=== PATIENT | female | born 1985 | race Caucasian/White ===

== ENCOUNTER 2016-11-01 12:53 | Observation (INO) | payer BC, MEDICAID ==
[2016-11-01 15:39] LABS: Hematocrit 39 % (35-47); Hemoglobin 13.1 g/dl (12.0-16.0); Mean Corpuscular HGB Conc 34 g/dl (31-36); Mean Corpuscular Hemoglobin 30 pg (27-31); Mean Corpuscular Volume 89 fL (80-97); Mean Platelet Volume 9 um3 (7.4-10.4); Red Cell Distribution Width 12 % (10.5-15)
--- NOTE | 2016-11-01 15:40 | RAD ---
HISTORY: Right flank pain COMPARISONS: None TECHNIQUE: Multiple transverse and longitudinal ultrasound images were obtained of the kidneys using grayscale and color Doppler imaging. FINDINGS: RIGHT KIDNEY: The right kidney is normal in shape, size, contour, and echogenicity. There are several echogenic shadowing foci of the right kidney, measuring up to 0.8 cm. There is no hydronephrosis. The right kidney measures 12.2 x 4 x 4.1 cm. LEFT KIDNEY: The left kidney is normal in shape, size, contour, and echogenicity. There is an echogenic shadowing focus of the left kidney along the lower pole measuring up to 0.5 cm. There is no appreciable hydronephrosis. The left kidney measures 12.3 x 5.9 x 4.9 cm. BLADDER: No images are submitted of the bladder. AORTA AND IVC: No images are submitted of the vasculature. RETROPERITONEUM: Unremarkable. OTHER: None. IMPRESSION: BILATERAL NEPHROLITHIASIS WITHOUT APPRECIABLE HYDRONEPHROSIS
[2016-11-01 16:07] LABS: Albumin 4.2 g/dL (3.2-5.2); BUN/Creatinine Ratio 20.8 (8-20); C Reactive Protein 7.79 mg/L (< 5.00); Calcium 9.1 mg/dL (8.6-10.3); EGFR African American 191.6 (>60); EGFR Non-African American 148.9 (>60); Potassium 3.7 mmol/L (3.5-5.0); Total Bilirubin 1.2 mg/dL (0.2-1.0); Total Protein 7.2 g/dL (6.4-8.9)
[2016-11-01] MEDS ORDERED: Ondansetron INJ* 2 MG/ML VIAL IV ONE (16:40)
[2016-11-01] MEDS ORDERED: Morphine INJ* 2 MG/ML 1 ML SYRINGE IV ONE ×2 (16:40)
[2016-11-01] MEDS ORDERED: Ondansetron INJ* 2 MG/ML VIAL IV PRN (16:53)
[2016-11-01 16:57] LABS: Urine Bacteria Absent (Absent); Urine Bilirubin Negative (Negative); Urine Glucose Negative (Negative); Urine Nitrite Negative (Negative)
[2016-11-01] MEDS: NS 0.9% 1000 ML* 2,000 ML IV ONE (17:20)
[2016-11-01] MEDS ORDERED: Morphine INJ* 2 MG/ML 1 ML SYRINGE IV PRN (17:32)
--- NOTE | 2016-11-01 20:15 | ED ---
Sara Anne Edward, scribed for Viraj Martin MD on 11/01/16 at 1439 . Back Pain - HPI Summary HPI Summary: 31 y/o female presents to the ED c/o sharp L flank pain starting at 7:00, which woke the patient up at night. The pain was rated at a 8/10 @ triage. The pain subsided but reappeared and now radiates to the front and the side. During the patient's first the patient had a kidney infection. Associated sx: N/ V. The patient is 9 weeks . PMHx kidney stones. G/P/A - . - History of Current Complaint Chief Complaint: EDFlankPain Stated Complaint: LT SIDE FLANK PAIN/9WKS PREG Time Seen by Provider: 11/01/16 14:29 Hx Obtained From: Patient Onset/Duration: Sudden Onset, Lasting Hours, Still Present Onset/Duration: Started Hours Ago - 07:00 this morning Severity Initially: Severe Severity Currently: Severe Pain Intensity: 8 Pain Scale Used: 0-10 Numeric Character: Sharp Associated Signs And Symptoms: Positive: Flank Pain, Other - N/V - Allergies/Home Medications Allergies/Adverse Reactions: Allergies Allergy/AdvReac Type Severity Reaction Status Date / Time No Known Allergies Allergy Verified 03/14/16 07:16 Home Medications: Home Medications Vitamin [Calna] 1 tab PO DAILY 11/01/16 [History Confirmed 11/01/16] PMH/Surg Hx/FS Hx/Imm Hx Previously Healthy: No History: Reports: Hx Kidney Infection - HX OF Sensory History: Denies: Hx Contacts or Glasses, Hx Hearing Aid Opthamlomology History: Denies: Hx Contacts or Glasses Neurological History: Reports: Hx Migraine - DURING - Surgical History Surgery Procedure, Year, and Place: APPENDECTOMY. D&E Hx Anesthesia Reactions: Yes - PATIENT GETS NAUSEA WHEN WAKE UP FROM ANESTHESIA Infectious Disease History: Denies: Traveled Outside the [place] in Last 30 Days - Family History Known Family History: Positive: Cardiac Disease - Maternal grandmother, Hypertension - Father and mother, Diabetes - Father, Other - Father - hyperlipidemia - Social History Alcohol Use: Occasionally Substance Use Type: Reports: None Smoking Status (MU): Never Smoked Tobacco Review of Systems Constitutional: Negative Eyes: Negative ENT: Negative Cardiovascular: Negative Respiratory: Negative Positive: Vomiting, Nausea Positive: flank pain Musculoskeletal: Negative Skin: Negative Neurological: Negative Psychological: Normal All Other Systems Reviewed And Are Negative: Yes Physical Exam - Summary Physical Exam Summary: VITAL SIGNS:~Reviewed. GENERAL:~Patient is a well-developed and nourished female who is lying comfortable in the stretcher.~ Patient is not in any acute respiratory distress. HEAD AND FACE:~Normocephalic and atraumatic. EYES:~PERRLA, EOMI x 2, No injected conjunctiva. EARS:~Hearing grossly intact. Ear canals and tympanic membranes are WNL. MOUTH:~Oropharynx within normal limits. NECK:~Supple, trachea is midline, no adenopathy, no JVD. CHEST:~Symmetric, no tenderness at palpation LUNGS:~Clear to auscultation bilaterally. No wheezing or crackles. CVS:~RRR, S1 and S2 present, no murmurs or gallops appreciated. ABDOMEN:~Soft, L CVA and L flank tenderness. No signs of distention. Positive bowel sounds. No rebound no guarding, and no masses palpated. No abdominal bruit or pulsations. EXTREMITIES:~FROM in all major joints, no edema, no cyanosis or clubbing. NEURO:~Alert and oriented x 3. No acute neurological deficits. Speech is normal. SKIN:~Dry and warm Triage Information Reviewed: Yes Vital Signs On Initial Exam: Initial Vitals Temp Pulse Resp BP Pulse Ox 98.5 F 64 18 98/52 99 11/01/16 12:58 11/01/16 12:58 11/01/16 12:58 11/01/16 12:58 11/01/16 12:58 Vital Signs Reviewed: Yes Diagnostics - Vital Signs Vital Signs Temp Pulse Resp BP Pulse Ox 11/01/16 12:58 98.5 F 64 18 98/52 99 - Laboratory Result Diagrams: 11/01/16 15:30 11/01/16 15:30 Lab Statement: Any lab studies that have been ordered have been reviewed, and results considered in the medical decision making process. - Ultrasound No standard instances Ultrasound Interpretation: Positive (See Comments) - RENAL US - BILATERAL NEPHROLITHIASIS WITHOUT APPRECIABLE HYDRONEPHROSIS Ultrasound Interpretation Completed By: Radiologist Back Pain Course/Dx - Course Assessment/Plan: 31 y/o female presents to the ED c/o sharp L flank pain starting at 7:00, which woke the patient up at night. The pain was rated at a 8/ 10 @ triage. The pain subsided but reappeared and now radiates to the front and the side. During the patient's first the patient had a kidney infection. Associated sx: N/V. The patient is 9 weeks . PMHx kidney stones. G/P/A - . Test results show WBC 15 without bands. Creatinine .48, glucose 104, CRP 7.7, UA 2 + ketones 1+ blood and contaminated. Therefore we will send for a urine culture. The patient c/o L flank pain radiating to the LLQ. Patient has a history of kidney stones. Since the patient is we cant do a ABD /Pel CT. RENAL US SHOWED BILATERAL NEPHROLITHIASIS WITHOUT APPRECIABLE HYDRONEPHROSIS. Therefore I discussed the findings with Dr. Wilcox who assessed the pt and agreed admission for observation. I also spoke with Dr. Ortiz who accepted the patient for admission with consultation with Dr. Wilcox. The pt became more tender in the L flank with slight nausea so the patient was given Zofran, morphine for pain and more iv fluids. The patient is hemodynamically stable and A&Ox3. - Diagnoses Provider Diagnoses: Flank pain, ruled out ureteral stones - Provider Notifications Discussed Care Of Patient With: Lyubov Ortiz Time Discussed With Above Provider: 16:40 Instructed by Provider To: Admit As Inpatient Discharge - Discharge Plan Condition: Stable Disposition: ADMITTED TO [facility] Referrals: No Primary Care Phys,NOPCP [Primary Care Provider] - The documentation as recorded by the Sara lacey Edward accurately reflects the service I personally performed and the decisions made by , Viraj Martin MD.
[2016-11-01] MEDS ORDERED: Acetaminophen TAB* 325 MG PO PRN (22:48)
[2016-11-01] MEDS ORDERED: Acetaminophen TAB* 325 MG ONE ×2 (22:57)
[2016-11-02] MEDS: NS 0.9% 1000 ML* 1,000 ML IV SCH ×2 (01:55→09:28)
--- NOTE | 2016-11-02 04:05 | HP ---
HISTORY AND PHYSICAL:* DATE OF ADMISSION: 11/01/16 ADDENDUM: To H and P dictated originally by Maryellen Franco. Mrs. Gallegos is a 31-year-old female who is 9 weeks , who presents complaining of flank pain. The ultrasound of her kidneys showed bilateral nephrolithiasis. Dr. Wilcox saw the patient in Gynecology consultation and recommended medicine admission for possibility of nephrolithiasis and renal colic. The patient is going to be admitted to the hospital with diagnosis of left flank pain. She is going to be placed on intravenous fluids, morphine on p.r.n. basis. A repeat renal ultrasound is going to be obtained in the morning. For further details of patient's presentation and plan, please see history and physical dictated by Maryellen Franco on 11/01/16, with which I agree. [id number]/CPS #: [id number] MTDD
--- NOTE | 2016-11-02 05:11 | HP ---
CC: Dr. Nabil Wilcox * HISTORY AND PHYSICAL: DATE OF ADMISSION: 11/01/16 PRIMARY CARE PROVIDER: None. AREA COORDINATOR: Dr. Nabil Wilcox. ATTENDING PHYSICIAN: Lyubov Ortiz MD* (dictated by Ana María Norris NP). CHIEF COMPLAINT: Left flank pain that radiates to abdomen. HISTORY OF PRESENT ILLNESS: Ms. Gallgeos is a 31-year-old female with past medical history significant for pyelonephritis and kidney stones, who is 9 weeks , presented to the emergency room with complaints of sudden onset of left-sided flank pain that radiates to her abdomen with associated nausea and vomiting. The patient also reports that on Friday she had significant vaginal bleeding and again had vaginal spotting yesterday. She reports seeing Dr. Wilcox as an outpatient. She denies any fevers, chest pain, shortness of breath, or urinary symptoms such as dysuria, changes in urgency or frequency. She reports intermittent chills. Due to the patient's flank pain, she presented to the emergency room for further evaluation of her symptoms. While in the emergency room, the patient had an ultrasound showing bilateral nephrolysis without appreciable hydronephrosis. She had urinalysis significant for 1+ blood, leukocyte esterase positive, bacteria absent, wbc's 1+, rbc's 3+. The patient had other labs that were unremarkable with the exception of an elevated white count of 15. The patient was seen in consultation by Dr. Wilcox in the emergency room, who felt that she should be admitted for IV fluids, pain medications, and antiemetics. The Hospitalists were asked to evaluate the patient for admission. PAST MEDICAL HISTORY: 1. Kidney stones. 2. Pyelonephritis. PAST SURGICAL HISTORY: 1. Status post D and E in 2012 and 2015. 2. Status post section in 2014. 3. Status post appendectomy in 1998. HOME MEDICATIONS: Include vitamin 1 tablet oral daily. ALLERGIES: No known drug allergies. FAMILY HISTORY: The patient has a maternal grandmother with a history of coronary artery disease. The patient's father has borderline diabetes mellitus , and the patient's maternal family has diabetes mellitus. The patient's maternal family also has a history of colon cancer. SOCIAL HISTORY: The patient denies tobacco, alcohol or recreational drug use. The patient's , Claude Lewis, will be her surrogate decision maker in the event that she is unable to make decisions for herself. REVIEW OF SYSTEMS: I performed a 14-point review of systems. All the pertinent positive and negatives are mentioned in the history of present illness. The remaining review of systems are negative. PHYSICAL EXAMINATION GENERAL APPEARANCE: The patient is alert, pleasant, appears to be in no acute distress. VITAL SIGNS: Temperature 98.5, heart rate 64, respiratory rate 18, O2 saturation 99% on room air, blood pressure 98/52. HEENT: Normocephalic, atraumatic. Pupils are equal and reactive to light. Extraocular movements are intact. RESPIRATORY: There is no accessory muscle use. Lungs are clear to auscultation bilaterally. CARDIOVASCULAR: Regular rate and rhythm. S1 and S2 present. There are no murmurs, rubs, or gallops heard. ABDOMEN: Soft, nontender, nondistended. There are bowel sounds present x4. EXTREMITIES: There is no lower extremity edema. DP and PT pulses are 2+ and symmetric. MUSCULOSKELETAL: There is no clubbing or cyanosis noted. The patient exhibits good strength in all extremities. NEUROLOGICAL: The patient is alert and oriented x4. Cranial nerves II through XII are grossly intact. PSYCHOLOGICAL: The patient is calm and cooperative. SKIN: There are no rashes or abnormalities. DIAGNOSTIC STUDIES/LABORATORY DATA: Sodium 133, potassium 3.7, chloride 103, CO2 21, BUN 10, creatinine 0.48, glucose 104. White blood cell count 15.0, hemoglobin 13.1, hematocrit 39, platelet count 227. Urinalysis significant for 1+ blood, 1+ wbc's, 3+ rbc's, squamous epithelial cells present, bacteria absent. Renal ultrasound from today. Radiologist impression: Bilateral nephrolysis without appreciable hydronephrosis. IMPRESSION: Ms. Gallegos is a 31-year-old female with past medical history significant for pyelonephritis and kidney stones, who presents to the emergency room with complaints of left-sided flank pain. She will be admitted as observation for left-sided flank pain. ASSESSMENT AND PLAN: 1. Left-sided flank pain. Suspect this could represent nephrolithiasis and renal colic. No kidney stones were noted in the ureters on ultrasound. Due to the patient's , she is unable to have a CT scan, but the ultrasound did show bilateral nephrolithiasis without appreciable hydronephrosis. The patient will receive IV hydration, pain medication, antiemetics as needed. We will strain her urine. I suspect she will pass this stone spontaneously. 2. [address] Wilcox will consult on the patient and check quantitative HCG. The patient will be continued on her vitamin. 3. Fluids, electrolytes, and nutrition. Regular diet. 4. Code status: Full code. 5. DVT prophylaxis. The patient is at low risk and will be encouraged to ambulate. 6. Disposition: Observation. TIME SPENT: Time for this admission was approximately 45 minutes, greater than half of that was spent with the patient and family discussing medications, past medical history, and events leading to her arrival today and performing the physical examination. The case has been reviewed with the patient attending, Dr. Ortiz, who agrees with the plan of care. Reviewed by ANA MARÍA NORRIS, FIELD ADMINISTRATOR-C 11/05/16 1718 DATE OF ADMISSION: 11/01/16 ADDENDUM: To H and P dictated originally by Ana María Norris. Mrs. Gallegos is a 31-year-old female who is 9 weeks , who presents complaining of flank pain. The ultrasound of her kidneys showed bilateral nephrolithiasis. Dr. Wilcox saw the patient in Gynecology consultation and recommended medicine admission for possibility of nephrolithiasis and renal colic. The patient is going to be admitted to the hospital with diagnosis of left flank pain. She is going to be placed on intravenous fluids, morphine on p.r.n. basis. A repeat renal ultrasound is going to be obtained in the morning. For further details of patient's presentation and plan, please see history and physical dictated by Ana María Norris on 11/01/16, with which I agree. LYUBOV ORTIZ MD [id number]/CPS #: [id number]/CPS #: [id number] EDITH
[2016-11-02 05:27] LABS: Hematocrit 33 % (35-47); Hemoglobin 10.9 g/dl (12.0-16.0); Mean Corpuscular HGB Conc 33 g/dl (31-36); Mean Corpuscular Hemoglobin 30 pg (27-31); Mean Corpuscular Volume 90 fL (80-97); Mean Platelet Volume 9 um3 (7.4-10.4); Red Blood Count 3.66 10^6/ul (4.0-5.4); Red Cell Distribution Width 12 % (10.5-15); White Blood Count 9.5 10^3/ul (3.5-10.8)
[2016-11-02 05:42] LABS: BUN/Creatinine Ratio 14.3 (8-20); EGFR African American 187.1 (>60); EGFR Non-African American 145.4 (>60); Potassium 4.1 mmol/L (3.5-5.0)
--- NOTE | 2016-11-02 06:01 | CONS ---
CONSULTATION REPORT: DATE OF CONSULT: 11/01/16 REASON FOR CONSULT: Ms. Gallegos is a 31-year-old who is currently with an intrauterine at 9+ weeks estimated gestational age and due date of 05/17/17. The patient's thus far has been complicated by a history of a molar in March 2016 and also by an urinary tract infection, for which she was treated on 10/11/16. She presented to the emergency room today with complaint of back pain, especially in her lower costal region. After she was evaluated in the emergency room, she was diagnosed with bilateral renal stones. The patient's past medical history is significant for history of renal lithiasis in the past and pyelonephritis during a past . PAST MEDICAL HISTORY: She has had a missed , molar , appendicitis, renal lithiasis, and pyelonephritis. PAST SURGICAL HISTORY: In 2015, she had a dilation and evacuation of a molar . In 2012, she had a section for a breech presentation. In 2012, she also had a dilation evacuation for a missed followed by a D and C due to an incomplete dilation and evacuation of that same missed . In 1998, she had an appendectomy. MEDICATIONS: Currently takes no medications. ALLERGIES: No known drug allergies. SOCIAL HISTORY: She is . She denies any cigarettes, alcohol or drug use. FAMILY HISTORY: Noncontributory. The patient's care up to this date, despite the complication mentioned in the history of present illness, has been within normal limits. PHYSICAL EXAMINATION: On evaluation in the emergency room, the patient was sitting in the emergency room bed. She appeared uncomfortable and in distress with pain. Her vital signs were stable. Her temperature was 97.9, pulse in the 80s, respiratory rate of 60 with a blood pressure of 107/67. Lungs- clear to auscultation bilaterally. CV- regular rate and rhythm. Positive and exquisite left CVA tenderness and suprapubic tenderness. Abdomen, soft, nontender, with normal active bowel sounds and no rebound. heart tones noted by doppler. Pelvic exam deferred. DIAGNOSTIC STUDIES/LAB DATA: She had a renal ultrasound which showed bilateral renal stones. No hydronephrosis bilaterally. Urinalysis was consistent with blood, ketones, and no bacteria. She had a comprehensive metabolic panel which is within normal limit, and a complete blood cell count which showed an elevated white blood cell count of 15, hemoglobin and hematocrit of 13.1/39 and platelets of 227 with no left shift. IMPRESSION: This 31-year-old with intrauterine at 9 weeks with bilateral renal stones with pain secondary to renal lithiasis, who is being admitted for IV hydration and pain control. I recommended she has daily heart sounds. I agree with the current management, and once the patient is discharged, she will be followed at my office, and if her condition is stable, I can arrange for a follow up with a urologist after discharge. [id number]/[facility] #: [id number] EDITH
--- NOTE | 2016-11-02 10:07 | RAD ---
INDICATION: Nephrolithiasis, left flank pain. COMPARISON: Comparison is made with a prior renal ultrasound from November 01, 2016. TECHNIQUE: Multiple real-time images of the kidneys were obtained. FINDINGS: The kidneys are normal in size shape and echogenicity. The right kidney measured 14.5 x 5.2 x 4.9 cm and the left kidney measured 12.2 x 15.2 x 5.6 cm. There are 2 echogenic foci in the lower pole of the right kidney which shadow most consistent with renal calculi. There is mild dilatation of the left renal calyces suggesting the possibility of mild hydronephrosis. There are bilateral symmetric ureteral vesicle jets. IMPRESSION: 1. POSSIBLE MILD LEFT HYDRONEPHROSIS. 2. NONOBSTRUCTING RIGHT RENAL CALCULI.
[2016-11-02 15:59] VITALS: BP 101/65
--- NOTE | 2016-11-03 07:31 | PN ---
Hospitalist Progress Note . HOSPITALIST DISCHARGE NOTE: See dc instructions and summary by me. Patient stable for dc dc instructions reviewed with the patient at the bedside. DC patient home today.
--- NOTE | 2016-11-03 12:09 | DS ---
DISCHARGE SUMMARY: DATE OF ADMISSION: 11/01/16 DATE OF DISCHARGE: 11/02/16 STATUS DURING HOSPITALIZATION: Observation. PRIMARY CARE PROVIDER: Unknown. OVERLOCK WAISTLINE JOINER: Dr. Nabil Wilcox. DISCHARGE MEDICATION REGIMEN: Unchanged and includes: 1. vitamin 1 tab by mouth once daily. 2. Tylenol OTC p.r.n. abdominal pain. PRINCIPAL DISCHARGE DIAGNOSES: Bilateral nephrolithiasis with associated flank pain and initial concern for hydronephrosis allayed by recurrent renal ultrasound. HISTORY OF PRESENT ILLNESS/HOSPITAL COURSE: Please see the H and P by Dr. Lyubov Ortiz and Maryellen Franco, MARTHA, on 11/01/16. Also, see the consultation by Dr. Nabil Wilcox, barrel scraper. In brief, Ms. Gallegos is a 31- year- old female with a history of pyelonephritis and nephrolithiasis, who is currently 9 weeks and presented to the emergency room with complaint of sudden onset of left flank pain with radiation to her abdomen with associated nausea and vomiting. The patient had vaginal bleeding and vaginal spotting the day prior to admission and reported seeing Dr. Wilcox as an outpatient. The patient had intermittent chills. Because of the flank pain, she came to the emergency room and had an ultrasound showing bilateral nephrolithiasis without appreciable hydronephrosis. The patient's urinalysis was significant for 1+ blood, absent bacteria, and 1+ white blood cells. The patient had unremarkable labs except for an elevated white count of 15. The patient saw Dr. Wilcox in the emergency room, who felt that the patient should be admitted for IV fluids and pain medications and antiemetics. The hospitalists admitted the patient and provided the services. Over the night and into 11/02/16, Ms. Gallegos required no IV analgesics and no IV antiemetics and received standing IV fluids without difficulty. The patient had a repeat renal ultrasound, which showed only mild right-sided hydronephrosis whereas her symptoms were on the left. This was artifactual and not clinically significant and the patient is being discharged home. Of note, the patient is to follow up with Dr. Wilcox. He could not identify the heart sounds, although I do not understand to what extent this is a definitive finding. He is going to repeat the study in his office with presumably better equipment or greater ability to detect the heart sounds if they are indeed present. Ms. Gallegos can certainly come back to the emergency room if she has any worrisome symptoms including, but not limited to, chest pain, shortness of breath, lightheadedness, abdominal pain, worsening vaginal bleeding, high fevers , or any other worrisome symptoms. I did do some basic renal stone education including the requirement for good hydration, oral calcium intake, avoiding foods high in oxalate, and the potential to strain urine for stone analysis if she so chooses. CONDITION AT DISCHARGE: Stable. [id number]/[facility] #: [id number] MTDD
== END 2016-11-02 16:00 | disposition home or self-care (01) ==
LOC: ED 12:53 → MED 16:51
PROVIDERS: ADMIT Internal Medicine; ATTEND Internal Medicine
DX: O26.891 Other specified pregnancy related conditions, first trimester (principal); N20.0 Calculus of kidney; Z3A.09 9 weeks gestation of pregnancy
CPT/HCPCS: 36415; 76775; 80048; 80053; 81003; 81015; 83690; 84702; 85025; 86140; 96374; 96375; 99282; A9270-GY; G0378; J2270; J2405

== ENCOUNTER 2016-11-17 00:05 | Emergency (ER) | payer MEDICAID ==
[2016-11-17] MEDS ORDERED: NS 0.9% 1000 ML* 1,000 ML IV ONE (00:21)
[2016-11-17 00:34] VITALS: BP 103/84
[2016-11-17 00:45] LABS: Hematocrit 37 % (35-47); Hemoglobin 12.4 g/dl (12.0-16.0); Mean Corpuscular HGB Conc 34 g/dl (31-36); Mean Corpuscular Hemoglobin 30 pg (27-31); Mean Corpuscular Volume 89 fL (80-97); Mean Platelet Volume 9 um3 (7.4-10.4); Red Blood Count 4.12 10^6/ul (4.0-5.4); Red Cell Distribution Width 12 % (10.5-15); White Blood Count 11.9 10^3/ul (3.5-10.8)
[2016-11-17 00:59] LABS: ALT 10 U/L (7-52); Albumin 4.2 g/dL (3.2-5.2); Alkaline Phosphatase 23 U/L (34-104); BUN/Creatinine Ratio 19.6 (8-20); Blood Urea Nitrogen 10 mg/dL (6-24); CO2 Carbon Dioxide 22 mmol/L (22-32); Calcium 8.8 mg/dL (8.6-10.3); Chloride 103 mmol/L (101-111); EGFR African American 178.6 (>60); EGFR Non-African American 138.9 (>60); Globulin 2.8 g/dL (2-4); Glucose 99 mg/dL (70-100); Lipase 24 U/L (11.0-82.0); Sodium 133 mmol/L (133-145)
[2016-11-17] MEDS ORDERED: Metoclopramide IV* 5 MG/ML 2 ML VIAL IV ONE (01:05)
[2016-11-17] MEDS ORDERED: Metoclopramide IV* 5 MG/ML 2 ML VIAL ONE ×2 (01:07)
[2016-11-17 01:09] LABS: Anion Gap 8 mmol/L (2-11)
[2016-11-17 02:36] LABS: Urine Bilirubin Negative (Negative); Urine Glucose Negative (Negative); Urine Nitrite Negative (Negative)
[2016-11-17] MEDS ORDERED: Metoclopramide TAB* 10 MG PO ONE (03:04)
--- NOTE | 2016-11-17 03:07 | ED ---
I, Oh,Judy, scribed for Vanesa Boles MD on 11/17/16 at 0059 . Abdominal Pain/Female - HPI Summary HPI Summary: This 31 y/o female presents to ED for left suprapubic pain since 2100 PM. "My bladder feels so full and it hurts". Negative fever or vaginal bleeding. Positive n/v. Pt is currently 11 weeks . PMHx includes kidney stones, which was diagnosed 2 weeks ago in [facility], and kidney infections. Her kidney stone from 2 weeks ago was located right and has been passed. Pt states her pain is similar in quality and location except tonight's pain is located more toward anterior rather than at flank. FHx is positive for kidney stone. Nonsmoker and nondrinker. - History of Current Complaint Chief Complaint: EDFlankPain Stated Complaint: ABD PAIN Time Seen by Provider: 11/17/16 00:20 Hx Obtained From: Patient ?: Yes Timing: Constant Pain Intensity: 5 Pain Scale Used: 0-10 Numeric Location: Discrete At: RLQ Radiates: No Character: Dull Aggravating Factor(s): Nothing Alleviating Factor(s): Nothing Associated Signs and Symptoms: Positive: Nausea, Vomiting. Negative: Fever Allergies/Adverse Reactions: Allergies Allergy/AdvReac Type Severity Reaction Status Date / Time No Known Allergies Allergy Verified 03/14/16 07:16 PMH/Surg Hx/FS Hx/Imm Hx History: Reports: Hx Kidney Infection - HX OF, Hx Kidney Stones Sensory History: Denies: Hx Contacts or Glasses, Hx Hearing Aid Opthamlomology History: Denies: Hx Contacts or Glasses Neurological History: Reports: Hx Migraine - DURING - Surgical History Surgery Procedure, Year, and Place: APPENDECTOMY. D&E Hx Anesthesia Reactions: Yes - PATIENT GETS NAUSEA WHEN WAKE UP FROM ANESTHESIA Infectious Disease History: Denies: Traveled Outside the [place] in Last 30 Days - Family History Known Family History: Positive: Cardiac Disease - Maternal grandmother, Hypertension - Father and mother, Diabetes - Father, Other - Father - hyperlipidemia. Positive kidney stone - Social History Alcohol Use: Occasionally Hx Substance Use: No Substance Use Type: Reports: None Hx Tobacco Use: No Smoking Status (MU): Never Smoked Tobacco Review of Systems Negative: Fever Positive: Abdominal Pain - RLQ, Vomiting, Nausea Negative: dysuria, discharge, other - vaginal bleeding All Other Systems Reviewed And Are Negative: Yes Physical Exam Triage Information Reviewed: Yes Vital Signs On Initial Exam: Initial Vitals Temp Pulse Resp BP Pulse Ox 98.4 F 79 16 112/74 99 11/17/16 00:07 11/17/16 00:07 11/17/16 00:07 11/17/16 00:07 11/17/16 00:07 Vital Signs Reviewed: Yes Appearance: Positive: Well-Appearing, No Pain Distress Skin: Positive: Warm, Skin Color Reflects Adequate Perfusion, Dry Head/Face: Positive: Normal Head/Face Inspection Eyes: Positive: EOMI, [place] Neck: Positive: Supple, Nontender Cardiovascular: Positive: RRR, Pulses are Symmetrical in both Upper and Lower Extremities. Negative: Murmur, Rub, Other - gallops Abdomen Description: Positive: Other: - mid and left suprapubic pain. RLQ tenderness Musculoskeletal: Positive: Strength/ROM Intact Neurological: Positive: Sensory/Motor Intact, Alert, Oriented to Person Place, Time Psychiatric: Positive: Affect/Mood Appropriate Diagnostics - Vital Signs Vital Signs Temp Pulse Resp BP Pulse Ox 11/17/16 00:29 98.2 F 86 12 103/84 100 11/17/16 00:07 98.4 F 79 16 112/74 99 - Laboratory Lab Results: Lab Results 11/17/16 Range/Units 00:31 WBC 11.9 H (3.5-10.8) 10^3/ul RBC 4.12 (4.0-5.4) 10^6/ul Hgb 12.4 (12.0-16.0) g/dl Hct 37 (35-47) % MCV 89 (80-97) fL MCH 30 (27-31) pg MCHC 34 (31-36) g/dl RDW 12 (10.5-15) % Plt Count 224 (150-450) 10^3/ul MPV 9 (7.4-10.4) um3 Neut % (Auto) 66.2 (38-83) % Lymph % (Auto) 27.1 (25-47) % Clare % (Auto) 5.7 (1-9) % Eos % (Auto) 0.4 (0-6) % Baso % (Auto) 0.6 (0-2) % Absolute Neuts (auto) 7.9 H (1.5-7.7) 10^3/ul Absolute Lymphs (auto) 3.2 (1.0-4.8) 10^3/ul Absolute Monos (auto) 0.7 (0-0.8) 10^3/ul Absolute Eos (auto) 0 (0-0.6) 10^3/ul Absolute Basos (auto) 0.1 (0-0.2) 10^3/ul Absolute Nucleated RBC 0.01 10^3/ul Nucleated RBC % 0.1 Result Diagrams: 11/17/16 00:31 11/17/16 00:31 Lab Statement: Any lab studies that have been ordered have been reviewed, and results considered in the medical decision making process. - Additional Comments Diagnostic Additional Comments: Renal US -- 6 mm nonobstructing left renal stone. Preg US -- Live IUP with estimated age 11 weeks and 3 days. Tiny anterior subchorionic bleed. Abdominal Pain Fem Course/Dx - Course Course Of Treatment: 11 wk female with uti and renal stone history with llq pain, pt does have a 2.2 cm complex cyst on the left that may be a corpus luteal cyst, renal u/s without hydro and with ureteral jets into the bladder (6mm stone in lower pole of the kidney on that side). urine is neg. pt will have close f/u with her medical office technology instructor Dr. Wilcox - Diagnoses Provider Diagnoses: Ovarian cyst, Discharge - Discharge Plan Condition: Stable Disposition: HOME Prescriptions: Metoclopramide TAB* [Reglan TAB*] 10 mg PO Q8H PRN #10 tab PRN Reason: Nausea The documentation as recorded by the Antolin lacey Soohyun accurately reflects the service I personally performed and the decisions made by me, Vanesa Boles MD.
--- NOTE | 2016-11-17 09:11 | RAD ---
Indication: LEFT flank pain. History of nephrolithiasis. 11 weeks 3 days gestation based on ultrasound of the same day. Comparison: November 02, 2016 ultrasound. Technique: LEFT unilateral renal ultrasound. REPORT AND IMPRESSION: 11.5 x 5.2 x 5.7 cm LEFT kidney demonstrates normal cortical echogenicity. 0.58 cm lower pole calyceal stone appears smaller than on the prior exam likely on a technical basis. Negative for hydronephrosis. Negative for perinephric fluid. Grossly symmetric ureteral jets documented at the urinary bladder.
--- NOTE | 2016-11-17 09:16 | RAD ---
Indication: Pelvic pain. Early . Comparison: No relevant prior exams available on the [facility] PACS for comparison. Technique: Transabdominal obstetrical ultrasound. Report: Solitary intrauterine gestational sac with mean sac diameter of 5.73 cm. 4.53 cm crown-rump length pole corresponding with 11 weeks 3 days gestation. Normal movement and cardiac activity with heart rate measuring 163 bpm. Mildly prominent 0.60 cm diameter yolk sac. Minimal perigestational hemorrhage visualized. 2.6 x 1.4 x 1.7 cm RIGHT ovary is unremarkable. 3.2 x 2.1 x 3.4 cm LEFT ovary is remarkable for a thick walled 2.4 x 2.2 x 1.6 cm cyst devoid of intrinsic vascularity most consistent with a corpus luteum. No free pelvic fluid visualized. No visualized extra ovarian adnexal region lesions. IMPRESSION: Single live intrauterine gestation with estimated gestational age is based on crown-rump length of 11 weeks 3 days gestation with AUA PATRICIA June 05, 2017. Minimal perigestational hemorrhage. Small probable corpus luteum cyst at the LEFT ovary. No suspicious adnexal region lesions visualized.
== END 2016-11-17 03:19 | disposition home or self-care (01) ==
LOC: ED 00:05
DX: O26.891 Other specified pregnancy related conditions, first trimester (principal); R11.2 Nausea with vomiting, unspecified; R10.31 Right lower quadrant pain; N83.209 Unspecified ovarian cyst, unspecified side; Z3A.11 11 weeks gestation of pregnancy
CPT/HCPCS: 36415; 76775; 76801; 80053; 81003; 83690; 85025; 86140; 99283; A9270-GY; J2765

== ENCOUNTER 2017-01-22 13:50 | Emergency (ER) | payer MEDICAID ==
[2017-01-22 13:54] VITALS: BP 110/60
== END 2017-01-22 16:06 | disposition left against medical advice (07) ==
LOC: ED 13:50
DX: R10.31 Right lower quadrant pain (principal); Z53.21 Procedure and treatment not carried out due to patient leaving prior to being seen by health care provider

== ENCOUNTER 2017-06-06 08:04 | Inpatient (IN) | payer BC ==
[~2017-06-06 08:04] MED LIST: Buffered Lidocaine 0.9% SYRIN* 5 ML/SYR SYRINGE INTRADERM ONE; Famotidine IV* 10 MG/ML 2 ML (20 mg) IV ONE; Sodium Citrate/Citric Acid* 15 ML UDC PO ONE; ceFOXitin 2 GM IVPREMIX* 2 GM/50 ML BAG IVPB ONE
[2017-06-06] MEDS ORDERED: OXYTOCIN* 10 UNITS/ML 1 ML VIAL ONE (09:37)
[2017-06-06] MEDS ORDERED: Dexamethasone IV* 4 MG/ML 1 ML (4 MG) ONE (09:37)
[2017-06-06] MEDS ORDERED: Ondansetron INJ* 2 MG/ML VIAL ONE (09:37)
[2017-06-06] MEDS ORDERED: Morphine PF AMP (0.5MG/ML)* 5 MG/10 ML AMP ONE (09:37)
[2017-06-06] MEDS ORDERED: ceFOXitin(*) 2 GM in NS 0.9% 100 ML* 100 ML IVPB ONE (10:00)
[2017-06-06] MEDS ORDERED: Atropine 1MG/ML INJ* 1 ML VIAL ONE (10:19)
[2017-06-06] MEDS ORDERED: Ketorolac INJ* 30 MG/ML 1 ML VIAL IV PRN (10:42)
[2017-06-06] MEDS ORDERED: Naloxone* 0.4 MG/ML 1 ML VIAL IV PRN ×2 (10:42)
[2017-06-06] MEDS ORDERED: DiMENhydriNATE IV* 50 MG/ML VIAL IV PUSH PRN (10:42)
[2017-06-06] MEDS ORDERED: Scopolamine 1.5 mg* PATCH TRANSDERM PRN (10:42)
[2017-06-06] MEDS ORDERED: Scopolamine PATCH Remove* 1 NOTE MISC PATCH OFF PRN (10:42)
[2017-06-06] MEDS ORDERED: Ondansetron INJ* 2 MG/ML VIAL IV PRN (10:42)
[2017-06-06] MEDS ORDERED: Nalbuphine* 20 MG/ML 1 ML VIAL IV PRN ×2 (10:42)
[2017-06-06] MEDS ORDERED: oxyCODONE/Acetamin 5/325 MG* TAB PO PRN ×3 (10:42→11:25)
[2017-06-06] MEDS ORDERED: Phenylephrine IV* 40 MCG/ML 10 ML SYRINGE ONE (10:53)
[2017-06-06] MEDS ORDERED: Zolpidem TAB* 5 MG PO PRN (11:25)
[2017-06-06] MEDS ORDERED: Dibucaine 1% 28.35 GM TUBE PR PRN (11:25)
[2017-06-06] MEDS ORDERED: Witch Hazel PAD* JAR TOPICAL PRN (11:25)
[2017-06-06] MEDS ORDERED: Glycerin ADULT SUPP PR PRN (11:25)
[2017-06-06] MEDS ORDERED: Acetaminophen TAB* 325 MG PO PRN (11:25)
[2017-06-06] MEDS ORDERED: Misoprostol TAB* 200 MCG ONE (12:04)
[2017-06-06] MEDS: Simethicone TAB* 80 MG TAB.CHEW PO SCH ×3 (14:31→22:20)
[2017-06-06] MEDS: Ibuprofen TAB* 600 MG PO SCH ×3 (14:31→22:19)
[2017-06-06] MEDS: Docusate CAP* 100 MG PO SCH ×2 (14:31→22:19)
[2017-06-07 06:32] LABS: ABS Basophils 0 10^3/ul (0-0.2); ABS Eosinophils 0 10^3/ul (0-0.6); ABS Lymphocytes 2.2 10^3/ul (1.0-4.8); ABS Monocytes 1.3 10^3/ul (0-0.8); ABS Neutrophils 9.3 10^3/ul (1.5-7.7); ABS Nucleated RBC 0 10^3/ul; Eosinophil % 0.2 % (0-6); Hematocrit 30 % (35-47); Hemoglobin 9.8 g/dl (12.0-16.0); Lymphocyte % 17.1 % (25-47); Mean Corpuscular HGB Conc 33 g/dl (31-36); Mean Corpuscular Hemoglobin 24 pg (27-31); Mean Corpuscular Volume 72 fL (80-97); Mean Platelet Volume 9 um3 (7.4-10.4); Nucleated Red Blood Cells % 0; Platelet Count 206 10^3/ul (150-450); Red Blood Count 4.15 10^6/ul (4.0-5.4); Red Cell Distribution Width 16 % (10.5-15); White Blood Count 12.9 10^3/ul (3.5-10.8)
[2017-06-07] MEDS: Ferrous Gluconate TAB* 324 MG TAB PO SCH ×2 (09:30→21:24)
[2017-06-07] MEDS: Docusate CAP* 100 MG PO SCH ×3 (09:30→21:24)
[2017-06-07] MEDS: Simethicone TAB* 80 MG TAB.CHEW PO SCH ×4 (09:30→21:24)
[2017-06-07] MEDS: Ibuprofen TAB* 600 MG PO PRN ×3 (09:31→21:24)
[2017-06-07] MEDS: oxyCODONE/Acetamin 5/325 MG* TAB PO PRN ×3 (10:22→19:58)
[2017-06-08] MEDS: Ibuprofen TAB* 600 MG PO PRN ×2 (06:14→12:06)
[2017-06-08] MEDS: oxyCODONE/Acetamin 5/325 MG* TAB PO PRN ×2 (06:14→12:06)
[2017-06-08] MEDS: Ferrous Gluconate TAB* 324 MG TAB PO SCH (08:47)
[2017-06-08] MEDS: Simethicone TAB* 80 MG TAB.CHEW PO SCH (08:47)
[2017-06-08] MEDS: Docusate CAP* 100 MG PO SCH (08:47)
[2017-06-08 09:03] VITALS: BP 109/74
--- NOTE | 2017-06-11 00:58 | OP ---
DATE OF OPERATION: 06/06/17 - ROOM #113 DATE OF : 81 SURGEON: Nabil Wilcox MD. SENIOR PUBLICATIONS SPECIALIST: Dr. David. ANESTHESIA: Spinal. PRE-OP DIAGNOSIS: Intrauterine at 39 weeks with a prior section. POST-OP DIAGNOSIS: Intrauterine at 39 weeks with a prior section. OPERATIVE PROCEDURE: Repeat low transverse section. ESTIMATED BLOOD LOSS: 700 cc. IV FLUIDS: She received 2800 cc of IV crystalloid fluid. URINE OUTPUT: Clear. SPECIMEN SENT TO PATHOLOGY: Cord blood. FINDINGS: Delivery of a female infant weighing 8 pounds 10 ounces with Apgars of 10 and 10 over clear fluid. The placenta was grossly intact with a 3-vessel cord noted. The uterus, adnexa, bowel, bladder were all within normal limits and there were no complications. DESCRIPTION OF PROCEDURE: The patient was taken to the operating room where she was identified. She was placed on the operating table where a spinal anesthetic was obtained without difficulty. She was then placed into supine position with a leftward tilt, prepped and draped in normal sterile fashion. A Pfannenstiel skin incision was made with a knife and extended laterally with curved Sargent scissors. The fascia was nicked in the midline and extended laterally with curved Sargent scissors. The fascia was then grasped superiorly and anteriorly with Malik clamps and dissected off sharply from the rectus muscle. The rectus muscle was in the midline bluntly. The peritoneum was identified and grasped with pickups and sharply widened with Metzenbaum scissors. The peritoneum was then extended superiorly and inferiorly bluntly. A bladder blade was inserted into the patient's abdomen and a bladder flap was then created using Metzenbaum scissors over which a bladder blade was then reinserted. A low transverse skin incision was made with a knife and extended laterally with bandage scissors. The amniotic sac was ruptured. The fluid was noted to be clear. The 's head was then grasped and delivered atraumatically. The rest of the 's body was then delivered. The cord was clamped and cut. The was handed off to awaiting iron erector. Cord bloods were obtained. The placenta was removed manually. The uterus was then exteriorized and cleared of all clots and debris using moist laparotomy sponges. The uterine incision was then closed using 0 Polysorb suture in a running locked fashion with a second imbricating layer of 0 Polysorb suture with good hemostasis noted. The uterus was then returned to the patient's abdomen. The gutters were then cleared of all clots and debris using moist laparotomy sponges. All sponges and instruments were removed from the patient's abdomen. The peritoneum was then closed using 3-0 Polysorb suture in a running fashion. The fascia was closed using 0 Polysorb suture in a running fashion and the skin was closed with 4-0 Monocryl subcuticular stitch. The patient tolerated the procedure well. Sponge, lap, needle counts were correct x2. She was then transferred to recovery room area in stable condition. [id number]/[facility] #: [id number] LISYD
== END 2017-06-08 12:50 | disposition home or self-care (01) | DRG 540 ==
LOC: MCHOB 08:04
PROVIDERS: ADMIT Obstetrics & Gynecology; ATTEND Obstetrics & Gynecology
PROC: 10D00Z1 Extraction of Products of Conception, Low, Open Approach (ICD-10-PCS; principal; 2017-06-06 09:30)
DX: O34.211 Maternal care for low transverse scar from previous cesarean delivery (principal); D64.9 Anemia, unspecified; O90.81 Anemia of the puerperium; Z3A.39 39 weeks gestation of pregnancy; Z37.0 Single live birth
CPT/HCPCS: 36415; 85025; A9270-GY; J0461; J0694; J1100; J1885; J2300; J2405; J2590

== ENCOUNTER → 2017-08-13 | Day surgery (SDC) | payer BC, MEDICAID ==
[~2017-08-13] MED LIST changes: -Buffered Lidocaine 0.9% SYRIN* 5 ML/SYR SYRINGE INTRADERM ONE; +Dexamethasone IV* 4 MG/ML 1 ML (4 MG) ONE; +DiMENhydriNATE IV* 50 MG/ML VIAL IV PUSH PRN; -Famotidine IV* 10 MG/ML 2 ML (20 mg) IV ONE; +Famotidine TAB* 20 MG ONE; +Fluorescein 10% INJ* 100 MG/ML AMP ONE; +Gentamicin ADULT (*) 160 MG in NS 0.9% 100 ML* 100 ML IVPB ONE; +HYDROmorphone INJ* 2 MG/ML CARPUJECT SYRINGE ONE; +Iohexol 180 (CONTRAST) 10 ML SDV IV ONE; +Midazolam* 1 MG/ML 5 ML VIAL (5 MG) ONE; +Morphine INJ* 2 MG/ML 1 ML CARPUJECT IV PRN; +Naloxone* 0.4 MG/ML 1 ML VIAL IV PRN; +Ondansetron INJ* 2 MG/ML VIAL ONE; +PROCHLORPERAZINE INJ 5 MG/ML 2 ML VIAL IV PRN; +Propofol* 10 MG/ML 20 ML BTL IV PUSH ONE; +Scopolamine 1.5 mg* PATCH ONE; -Sodium Citrate/Citric Acid* 15 ML UDC PO ONE; +Sulfamethox/Trimethoprim DS 800/160* TAB PO ONE; -ceFOXitin 2 GM IVPREMIX* 2 GM/50 ML BAG IVPB ONE; +cefTRIAXone(*) 2 GM ADDV.VIAL IVPB ONE; +fentaNYL* 50 MCG/ML 2 ML VIAL (100 MCG VIAL) IV PRN; +oxyCODONE/Acetamin 5/325 MG* TAB PO PRN
--- NOTE | 2017-08-13 19:00 | RAD ---
INDICATION: Right stent insertion COMPARISONS: None relevant TECHNIQUE: Fluoroscopy was provided for a retrograde pyelogram and stent placement. Total fluoroscopy time is: 29 seconds FINDINGS: Contrast is noted within the renal collecting system which is markedly dilated. A ureteral stent is noted. IMPRESSION: FLUOROSCOPY WAS PROVIDED FOR A RETROGRADE PYELOGRAM AND STENT PLACEMENT CPT II Codes: G9500
[2017-08-13 19:33] VITALS: BP 131/86
--- NOTE | 2017-08-13 20:26 | RAD ---
HISTORY: Status post stent insertion COMPARISONS: ]. Gated August 13, 2017 VIEWS: Frontal views of the abdomen. FINDINGS: BOWEL: There is a nonspecific bowel gas pattern, with nondilated small bowel gas noted. CALCULI: There is a 0.5 cm calculus overlying the lower pole of the right kidney. A right ureteral stent is noted. BONES AND SOFT TISSUES: There are no osseous abnormalities. OTHER FINDINGS: None . IMPRESSION: RIGHT NEPHROLITHIASIS. RIGHT URETERAL STENT.
--- NOTE | 2017-08-13 21:54 | HP ---
CC: Dr. Janes Marie; Dr. Nabil Wilcox * ADMITTING HISTORY AND PHYSICAL: DATE OF ADMISSION: 08/13/17. PREOPERATIVE DIAGNOSES: 1. Right hydronephrosis. 2. Calculus right proximal ureter. PLANNED PROCEDURE: Right ureteral stent insertion (to be followed in the near future by shockwave lithotripsy). HISTORY OF PRESENT ILLNESS: Mckenzie Gallegos is a 31-year-old lady, who has had longstanding history of kidney stones for the last 10 to 12 years. She has not required any procedures for the kidney stones, but has had recurrent urinary tract infections including by her description 10 to 12 infections in the last year. She now had increasing right flank pain, nausea, and vomiting, and was evaluated in my office on an urgent basis earlier today where an ultrasound showed moderate-to- severe right hydronephrosis with what appears to be a 1-cm calculus or cluster of calculi in the proximal right ureter. On ultrasound, there was also a suggestion of possible duplication of the right collecting system. She also had increased renal cortical echogenicity on the right side suggesting that the obstruction has been present for a while. Right ureteral jet was absent suggesting a complete obstruction of the right ureter. She is being brought in for urgent right stent insertion to be followed probably in the near future by lithotripsy. PAST MEDICAL HISTORY: Significant for renal calculi. PAST SURGICAL HISTORY: Significant for x2 (most recently 2 months ago ), and appendectomy. MEDICATIONS ON ADMISSION: Oxycodone p.r.n. ALLERGIES: No known drug allergies. FAMILY HISTORY: Her father and grandfather both have a history of kidney stones. REVIEW OF SYSTEMS: She is otherwise in excellent health. There is no history of diabetes mellitus or any other major systemic illness. PHYSICAL EXAMINATION GENERAL: Reveals an uncomfortable appearing young lady. VITAL SIGNS: Blood pressure is 120/84, pulse 81 per minute, temperature 97.1, oxygen saturation 97% on room air. LUNGS: Clear bilaterally. CARDIOVASCULAR: Regular rate and rhythm. S1, S2. ABDOMEN: Soft with right flank tenderness. IMPRESSION: I had a detailed discussion with Mckenzie and her mother regarding the findings on ultrasound and because of the severity of pain, she would like to have a stent placed today rather than try to wait over the next day or two to see whether there is any chance of spontaneous passage. PLAN: Urgent right stent insertion to be followed at some point in the near future by lithotripsy. [id number]/[facility] #: [id number] EDITH
--- NOTE | 2017-08-14 12:25 | OP ---
CC: Dr. Gabe Marie; Dr. Wilcox; Dr. Locke OPERATIVE REPORT: DATE OF OPERATION: 08/13/17 DATE OF : 81 SURGEON: Federico Locke MD ANESTHESIOLOGIST: Earle Reardon MD ANESTHESIA: Spinal. PRE-OP DIAGNOSES: Severe right hydronephrosis and calculus, right proximal ureter. POST-OP DIAGNOSES: Severe right hydronephrosis; calculus, right proximal ureter; additional larger c alculus, right distal ureter. OPERATIVE PROCEDURE: Cystoscopy, right retrograde pyelogram, right ureteroscopy, laser lithotripsy o f ureteral calculus, and right stent insertion. INDICATIONS: Mckenzie Gallegos is a 31-year-old lady, who was evaluated for right flank pain, nausea and vomiting and noted to have severe right hydronephrosis. COMPLICATIONS: None. POSTOPERATIVE CONDITION: Stable. STENT USED: A 7-Trinidadian stent, right ureter. OPERATIVE FINDINGS: 1. Severe right hydronephrosis and proximal hydroureter. 2. Calculus, right proximal ureter. 3. Large calculus impacted in the right distal ureter with surrounding edema and inflammation. POSTOPERATIVE CONDITION: Stable. DESCRIPTION OF PROCEDURE: After induction of spinal anesthesia, the patient was placed in dorsal lit hotomy position, sequential compression devices were in place and functioning. Initial cystoscopy re vealed single orifice in the right and left sides of the trigone (office ultrasound had great suspici on of duplicated collecting system). Clear efflux was noted from the left orifice. There was no eff lux noted from the right suggesting a complete obstruction. Hydrophilic Glidewire was introduced into the right distal ureter. Resistance was encountered few ce ntimeters above the ureterovesical junction and retrograde pyelogram revealed markedly dilated tortuo us ureter proximally with severe hydronephrosis. A 6-Trinidadian semirigid ureteroscope was introduced an d advanced under direct vision. In the distal ureter, a fairly large 1.5- to 2-cm sharp edged calcul us was noted. Using a 550 micron holmium laser, this was successfully broken up into multiple fragme nts and all of the sizeable fragments were removed. I did not see any evidence of duplication either on the retrograde or on the ureteroscopy, although there was some contrast that appeared to be in a tubular structure lateral to the ureter, which may represent reflux of contrast into gonadal vessels and I did not see any convincing evidence of a duplicated collecting system. A 7-Trinidadian stent was in troduced and positioned under fluoroscopy with good proximal and distal positioning obtained. The bl adder was emptied. The plan is to bring her back later on for definite treatment of the more proximal calculus. [id number]/[facility] #: [id number]
== END | disposition home or self-care (01) ==
LOC: OR 14:48
PROVIDERS: ATTEND Urology
DX: N13.2 Hydronephrosis with renal and ureteral calculous obstruction (principal)
CPT/HCPCS: 74018; 74420; 81025; 82365; 88300; A9270-GY; C1876; J0696; J1100; J1170; J1580; J2250; J2405; J2704

== ENCOUNTER 2017-08-18 12:48 | Day surgery (SDC) | payer BC ==
[~2017-08-18 12:48] MED LIST changes: +Buffered Lidocaine 0.9% SYRIN* 5 ML/SYR SYRINGE INTRADERM ONE; -Dexamethasone IV* 4 MG/ML 1 ML (4 MG) ONE; -DiMENhydriNATE IV* 50 MG/ML VIAL IV PUSH PRN; -Famotidine TAB* 20 MG ONE; -Fluorescein 10% INJ* 100 MG/ML AMP ONE; -Gentamicin ADULT (*) 160 MG in NS 0.9% 100 ML* 100 ML IVPB ONE; -HYDROmorphone INJ* 2 MG/ML CARPUJECT SYRINGE ONE; -Iohexol 180 (CONTRAST) 10 ML SDV IV ONE; -Midazolam* 1 MG/ML 5 ML VIAL (5 MG) ONE; -Morphine INJ* 2 MG/ML 1 ML CARPUJECT IV PRN; -Naloxone* 0.4 MG/ML 1 ML VIAL IV PRN; -Ondansetron INJ* 2 MG/ML VIAL ONE; -PROCHLORPERAZINE INJ 5 MG/ML 2 ML VIAL IV PRN; -Propofol* 10 MG/ML 20 ML BTL IV PUSH ONE; -Scopolamine 1.5 mg* PATCH ONE; -Sulfamethox/Trimethoprim DS 800/160* TAB PO ONE; -cefTRIAXone(*) 2 GM ADDV.VIAL IVPB ONE; -fentaNYL* 50 MCG/ML 2 ML VIAL (100 MCG VIAL) IV PRN; -oxyCODONE/Acetamin 5/325 MG* TAB PO PRN
[2017-08-18] MEDS ORDERED: cefTRIAXone(*) 2 GM ADDV.VIAL IVPB ONE (13:48)
[2017-08-18] MEDS ORDERED: Ondansetron INJ* 2 MG/ML VIAL IV PRN (14:02)
[2017-08-18] MEDS ORDERED: fentaNYL* 50 MCG/ML 2 ML VIAL (100 MCG VIAL) IV PRN (14:02)
[2017-08-18] MEDS ORDERED: Acetaminophen TAB* 325 MG PO PRN (14:02)
[2017-08-18] MEDS ORDERED: DiMENhydriNATE IV* 50 MG/ML VIAL IV PUSH PRN (14:02)
[2017-08-18] MEDS ORDERED: Nalbuphine* 20 MG/ML 1 ML VIAL IV PRN (14:02)
[2017-08-18] MEDS ORDERED: Naloxone* 0.4 MG/ML 1 ML VIAL IV PRN (14:02)
[2017-08-18] MEDS ORDERED: Midazolam* 1 MG/ML 2 ML VIAL (2 MG) ONE (14:09)
[2017-08-18] MEDS ORDERED: Chloroprocaine 2%* 20 ML VIAL ONE (14:23)
[2017-08-18] MEDS ORDERED: fentaNYL* 50 MCG/ML 2 ML VIAL (100 MCG VIAL) ONE (15:03)
[2017-08-18] MEDS ORDERED: Dexamethasone IV* 4 MG/ML 1 ML (4 MG) ONE (15:19)
[2017-08-18] MEDS ORDERED: DiMENhydriNATE IV* 50 MG/ML VIAL ONE (15:19)
[2017-08-18] MEDS ORDERED: Propofol* 10 MG/ML 20 ML BTL IV PUSH ONE (15:22)
[2017-08-18] MEDS ORDERED: Lidocaine 2% PF * 5 ML VIAL ONE (15:23)
--- NOTE | 2017-08-18 15:29 | RAD ---
Indication: Right renal calculi status post preop lithotripsy. Single view of the abdomen demonstrates right ureteral stent in place. Several calcifications are noted in the lower pole of the right kidney the largest measuring up to 7 mm. When compared to previous exam of August 13, 2017 this calcification was not identified. The more peripheral triangular-shaped calcification is unchanged. IMPRESSION: There is a calcification overlying the lower pole of the right kidney measures up to 7 mm. Additional smaller calcification is noted overlying the right kidney. Only the smaller calcifications was identified on the previous exam of August 13, 2017. Right ureteral stent is in place.
[2017-08-18 17:16] VITALS: BP 115/79
--- NOTE | 2017-08-19 08:30 | OP ---
DATE OF OPERATION: 08/18/17 - SDS DATE OF : 81 SURGEON: Federico Locke MD ANESTHESIOLOGIST: Dr. Valdez. ANESTHESIA: Spinal. PRE-OP DIAGNOSIS: Right renal calculi. POST-OP DIAGNOSIS: Right renal calculi. OPERATIVE PROCEDURE: Shockwave lithotripsy of right renal calculi. COMPLICATIONS: None. POSTOPERATIVE CONDITION: Stable. INDICATIONS: Mckenzie Gallegos is a 31-year-old lady who had previously undergone right ureteroscopy for a large calculus in the right ureter and right stent insertion. At that time, she had been noted also to have a calculus in the proximal ureter, which was manipulated into the kidney and is now being brought in for shockwave lithotripsy of the same. DESCRIPTION OF THE PROCEDURE: After induction of spinal anesthesia, the patient was placed on the lithotripsy table in supine position. There were 2 calculi in the lower pole of the right kidney, the larger one measuring about 8 to 9 mm and the smaller one 3 to 4 mm. Shockwave lithotripsy was commenced at a rate of 60 shocks per minute with the target being the larger of the 2 calculi. After the initial 300 shocks, there was a pause in lithotripsy for a few minutes in an effort to minimize any potential trauma to the kidney. Lithotripsy was then resumed and a total of 2000 shocks were administered to the larger calculus. Next, repositioning under fluoroscopic monitoring, the smaller calculus was targeted with 400 shocks of shockwave lithotripsy. Thus, a total of 2400 shocks were administered during the procedure. Good fragmentation was observed. The patient tolerated the procedure satisfactorily and was transferred back to the recovery area in stable condition. [id number]/[facility] #: [id number] [facility]
== END 2017-08-18 17:58 | disposition home or self-care (01) ==
LOC: OR 12:48
PROVIDERS: ATTEND Urology
DX: N20.0 Calculus of kidney (principal); Z87.442 Personal history of urinary calculi
CPT/HCPCS: 74018; 81025; J0696; J1100; J1240; J2250; J2400; J2704; J3010

== ENCOUNTER 2017-12-11 01:02 | Emergency (ER) | payer BC ==
[2017-12-11 01:23] LABS: ABS Basophils 0.1 10^3/ul (0-0.2); ABS Eosinophils 0.2 10^3/ul (0-0.6); ABS Lymphocytes 2.6 10^3/ul (1.0-4.8); ABS Monocytes 0.7 10^3/ul (0-0.8); ABS Neutrophils 7.2 10^3/ul (1.5-7.7); ABS Nucleated RBC 0 10^3/ul; Eosinophil % 1.9 % (0-6); Hematocrit 38 % (35-47); Hemoglobin 12.9 g/dl (12.0-16.0); Lymphocyte % 23.8 % (25-47); Mean Corpuscular HGB Conc 34 g/dl (31-36); Mean Corpuscular Hemoglobin 29 pg (27-31); Mean Corpuscular Volume 86 fL (80-97); Mean Platelet Volume 8.6 um3 (7.4-10.4); Nucleated Red Blood Cells % 0; Platelet Count 216 10^3/ul (150-450); Red Blood Count 4.42 10^6/ul (4.00-5.40); Red Cell Distribution Width 13 % (10.5-15); White Blood Count 10.8 10^3/ul (3.5-10.8)
[2017-12-11] MEDS ORDERED: NS 0.9% 1000 ML* 1,000 ML IV ONE (01:32)
[2017-12-11] MEDS ORDERED: Ketorolac INJ* 30 MG/ML 1 ML VIAL IV PUSH ONE (01:32)
[2017-12-11] MEDS ORDERED: Ondansetron INJ* 2 MG/ML VIAL IV ONE (01:32)
[2017-12-11 01:40] LABS: EGFR Non-African American 85.8 (>60)
[2017-12-11 02:01] LABS: Urine Appearance Clear; Urine Blood 2+ (Negative); Urine Color Yellow; Urine Ketones Negative (Negative); Urine Protein Negative (Negative); Urine Red Blood Cell 3+(>10/hpf) (Absent); Urine Urobilinogen Negative (Negative); Urine White Blood Cell Absent (Absent)
--- NOTE | 2017-12-11 02:02 | RAD ---
EXAM: CT Abdomen and Pelvis Without Intravenous Contrast CLINICAL HISTORY: 32 years old, female; Pain; Abdominal pain; Flank; Left; Additional info: Renal colic TECHNIQUE: Axial computed tomography images of the abdomen and pelvis without intravenous contrast. All CT scans at this facility use at least one of these dose optimization techniques: automated exposure control; mA and/or kV adjustment per patient size (includes targeted exams where dose is matched to clinical indication); or iterative reconstruction. Coronal and sagittal reformatted images were created and reviewed. COMPARISON: PREG<14WK US PREG COMPLETE<14WKS 1ST FET 11/17/2016 1:48 AM FINDINGS: Lung bases: Unremarkable. No mass. No consolidation. ABDOMEN: Liver: Unremarkable. Gallbladder and bile ducts: Unremarkable. No calcified stones or biliary dilation. Pancreas: Unremarkable. No mass Spleen: Unremarkable. Adrenals: Unremarkable. No mass. Kidneys and ureters: A 4 x 5 mm calcification is present in the left UVJ with mild left hydroureteronephrosis. A 2 mm nonobstructing stone is present in right lower pole renal collecting system. Stomach and bowel: No bowel obstruction. PELVIS: Appendix: No findings to suggest acute appendicitis. Bladder: The urinary bladder is decompressed but contains no calcified stones. Reproductive: Unremarkable as visualized. ABDOMEN and PELVIS: Intraperitoneal space: Unremarkable. No free air or free fluid. Bones/joints: No acute fracture or aggressive osseous lesions Soft tissues: There is a small umbilical hernia containing fat and the anterior wall of a short segment of small bowel. No bowel obstruction. Vasculature: Unremarkable. No abdominal aortic aneurysm. Lymph nodes: Unremarkable. No enlarged lymph nodes. IMPRESSION: 4 x 5 mm stone at left UVJ. Mild left hydroureteronephrosis.
[2017-12-11 04:25] VITALS: BP 108/65
--- NOTE | 2017-12-11 05:43 | ED ---
GI/ HPI - HPI Summary HPI Summary: Patient is a 32 y/o F w/ c/o central suprapubic pain onsetting yesterday. On triage, left flank pain is noted but she does not mention this pain in the room. She states pain yesterday was minor, but today pain became persistent and more severe. In the room, she notes no pain currently but states deep breaths aggravated pain when present. Patient notes N/V and severe shaking. She denies fever and hematuria. Patient has Hx of kidney stones on right side. Dr Warren called to let Dr. Zelaya know about patient's Hx of kidney stones which onsetted after . She reports renal failure due to kidney stones. Patient had two renal stents 5 months ago as a result. Smoking and drinking alcohol denied, patient is nursing a baby currently at home. - History of Current Complaint Chief Complaint: EDFlankPain Time Seen by Provider: 12/11/17 01:15 Stated Complaint: LT SIDE KIDNEY PAIN Hx Obtained From: Patient Onset/Duration: Started Days Ago - onset yesterday, Resolved Timing: Constant Current Severity: None - pain denied in room Pain Intensity: 0 Location of Pain: Suprapubic, Flank - left side Associated Signs and Symptoms: Positive: Nausea, Vomiting, Other: - body tremors. Negative: Fever, Hematuria Aggravating Factor(s): Movement Alleviating Factor(s): Nothing - Additional Pertinent History Primary Care Physician: [id number] - Allergy/Home Medications Allergies/Adverse Reactions: Allergies Allergy/AdvReac Type Severity Reaction Status Date / Time No Known Allergies Allergy Verified 08/18/17 13:20 PMH/Surg Hx/FS Hx/Imm Hx History: Reports: Hx Kidney Infection - HX OF, Hx Kidney Stones, Other Problems/Disorders - frequent UTI's Sensory History: Denies: Hx Contacts or Glasses, Hx Hearing Aid Opthamlomology History: Denies: Hx Contacts or Glasses Neurological History: Reports: Hx Migraine - only during 1st - Surgical History Surgery Procedure, Year, and Place: appendectomy at 11 yrs old - [place]. D&[place]2 [facility] [place] - [place]. x2 - [facility] [place]. cysto with right stent insertion - august 2017 - [facility] [place] Hx Anesthesia Reactions: Yes - PONV Infectious Disease History: No Infectious Disease History: Denies: Traveled Outside the [place] in Last 30 Days - Family History Known Family History: Positive: Cardiac Disease - Maternal grandmother, Hypertension - Father and mother, Diabetes - Father, Other - Father - hyperlipidemia. Positive kidney stone - Social History Alcohol Use: Rare Hx Substance Use: No Substance Use Type: Reports: None Hx Tobacco Use: No Smoking Status (MU): Never Smoked Tobacco Have You Smoked in the Last Year: No Review of Systems Negative: Fever Positive: Abdominal Pain - suprapubic , Vomiting, Nausea Positive: pain - left flank . Negative: hematuria All Other Systems Reviewed And Are Negative: Yes Physical Exam - Summary Physical Exam Summary: Appearance: Well appearing, no pain distress Skin: warm, dry, reflects adequate perfusion Head/face: normal Eyes: EOMI, [place] ENT: normal Neck: supple, non-tender Respiratory: CTA, breath sounds present Cardiovascular: RRR, pulses symmetrical Abdomen: non-tender, soft Bowel Sounds: present Musculoskeletal: strength/ROM intact; mild left CVA tenderness Neuro: normal, sensory motor intact, A&Ox3 Triage Information Reviewed: Yes Vital Signs On Initial Exam: Initial Vitals Temp Pulse Resp BP Pulse Ox 98.2 F 88 16 127/65 98 12/11/17 01:04 12/11/17 01:04 12/11/17 01:04 12/11/17 01:04 12/11/17 01:04 Vital Signs Reviewed: Yes Diagnostics - Vital Signs Vital Signs Temp Pulse Resp BP Pulse Ox 12/11/17 04:37 98.7 F 88 16 108/65 96 12/11/17 04:23 82 108/65 97 12/11/17 04:08 72 105/80 98 12/11/17 04:00 76 97 12/11/17 03:38 71 114/68 97 12/11/17 03:08 77 115/68 96 12/11/17 03:00 77 96 12/11/17 02:38 77 113/78 96 12/11/17 02:08 79 120/85 98 12/11/17 01:38 76 127/89 97 12/11/17 01:04 98.2 F 88 16 127/65 98 - Laboratory Lab Results: Lab Results 12/11/17 12/11/17 12/11/17 Range/Units 01:17 01:17 01:17 WBC 10.8 (3.5-10.8) 10^3/ul RBC 4.42 (4.00-5.40) 10^6/ul Hgb 12.9 (12.0-16.0) g/dl Hct 38 (35-47) % MCV 86 (80-97) fL MCH 29 (27-31) pg MCHC 34 (31-36) g/dl RDW 13 (10.5-15) % Plt Count 216 (150-450) 10^3/ul MPV 8.6 (7.4-10.4) um3 Neut % (Auto) 67.2 (38-83) % Lymph % (Auto) 23.8 L (25-47) % Wolfe % (Auto) 6.1 (0-7) % Eos % (Auto) 1.9 (0-6) % Baso % (Auto) 1.0 (0-2) % Absolute Neuts (auto) 7.2 (1.5-7.7) 10^3/ul Absolute Lymphs (auto) 2.6 (1.0-4.8) 10^3/ul Absolute Monos (auto) 0.7 (0-0.8) 10^3/ul Absolute Eos (auto) 0.2 (0-0.6) 10^3/ul Absolute Basos (auto) 0.1 (0-0.2) 10^3/ul Absolute Nucleated RBC 0 10^3/ul Nucleated RBC % 0 Sodium 137 (135-145) mmol/L Potassium 3.7 (3.5-5.0) mmol/L Chloride 103 (101-111) mmol/L Carbon Dioxide 27 (22-32) mmol/L Anion Gap 7 (2-11) mmol/L BUN 21 (6-24) mg/dL Creatinine 0.77 (0.51-0.95) mg/dL Est GFR ( Amer) 103.8 (>60) Est GFR (Non-Af Amer) 85.8 (>60) BUN/Creatinine Ratio 27.3 H (8-20) Glucose 114 H (70-100) mg/dL Lactic Acid 0.6 (0.5-2.0) mmol/L Calcium 9.3 (8.6-10.3) mg/dL Total Bilirubin 0.70 (0.2-1.0) mg/dL AST 16 (13-39) U/L ALT 16 (7-52) U/L Alkaline Phosphatase 67 (34-104) U/L C-Reactive Protein 4.65 (<8.01) mg/L Total Protein 7.3 (6.4-8.9) g/dL Albumin 4.7 (3.2-5.2) g/dL Globulin 2.6 (2-4) g/dL Albumin/Globulin Ratio 1.8 (1-3) Lipase 21 (11.0-82.0) U/L Beta HCG, Quant < 0.60 mIU/mL Urine Color Urine Appearance Urine pH (5-9) Ur Specific [place] (1.010-1.030) Urine Protein (Negative) Urine Ketones (Negative) Urine Blood (Negative) Urine Nitrate (Negative) Urine Bilirubin (Negative) Urine Urobilinogen (Negative) Ur Leukocyte Esterase (Negative) Urine WBC (Auto) (Absent) Urine RBC (Auto) (Absent) Ur Squamous Epith Cells (Absent) Calcium Oxalate Crystal (Absent) Urine Bacteria (Absent) Urine Glucose (Negative) 12/11/17 Range/Units 01:52 WBC (3.5-10.8) 10^3/ul RBC (4.00-5.40) 10^6/ul Hgb (12.0-16.0) g/dl Hct (35-47) % MCV (80-97) fL MCH (27-31) pg MCHC (31-36) g/dl RDW (10.5-15) % Plt Count (150-450) 10^3/ul MPV (7.4-10.4) um3 Neut % (Auto) (38-83) % Lymph % (Auto) (25-47) % Wolfe % (Auto) (0-7) % Eos % (Auto) (0-6) % Baso % (Auto) (0-2) % Absolute Neuts (auto) (1.5-7.7) 10^3/ul Absolute Lymphs (auto) (1.0-4.8) 10^3/ul Absolute Monos (auto) (0-0.8) 10^3/ul Absolute Eos (auto) (0-0.6) 10^3/ul Absolute Basos (auto) (0-0.2) 10^3/ul Absolute Nucleated RBC 10^3/ul Nucleated RBC % Sodium (135-145) mmol/L Potassium (3.5-5.0) mmol/L Chloride (101-111) mmol/L Carbon Dioxide (22-32) mmol/L Anion Gap (2-11) mmol/L BUN (6-24) mg/dL Creatinine (0.51-0.95) mg/dL Est GFR ( Amer) (>60) Est GFR (Non-Af Amer) (>60) BUN/Creatinine Ratio (8-20) Glucose (70-100) mg/dL Lactic Acid (0.5-2.0) mmol/L Calcium (8.6-10.3) mg/dL Total Bilirubin (0.2-1.0) mg/dL AST (13-39) U/L ALT (7-52) U/L Alkaline Phosphatase (34-104) U/L C-Reactive Protein (<8.01) mg/L Total Protein (6.4-8.9) g/dL Albumin (3.2-5.2) g/dL Globulin (2-4) g/dL Albumin/Globulin Ratio (1-3) Lipase (11.0-82.0) U/L Beta HCG, Quant mIU/mL Urine Color Yellow Urine Appearance Clear Urine pH 5.0 (5-9) Ur Specific [place] 1.020 (1.010-1.030) Urine Protein Negative (Negative) Urine Ketones Negative (Negative) Urine Blood 2+ A (Negative) Urine Nitrate Negative (Negative) Urine Bilirubin Negative (Negative) Urine Urobilinogen Negative (Negative) Ur Leukocyte Esterase Negative (Negative) Urine WBC (Auto) Absent (Absent) Urine RBC (Auto) 3+(>10/hpf) A (Absent) Ur Squamous Epith Cells Present A (Absent) Calcium Oxalate Crystal Present A (Absent) Urine Bacteria Absent (Absent) Urine Glucose Negative (Negative) Result Diagrams: 12/11/17 01:17 12/11/17 01:17 Lab Statement: Any lab studies that have been ordered have been reviewed, and results considered in the medical decision making process. - CT CT abd/pel CT Interpretation: Positive (See Comments) CT Interpretation Completed By: Radiologist - 4 x 5 mm stone at left UVJ. Mild left hydroureteronephrosis. This report was reviewed by ED physician. Re-Evaluation - Re-Evaluation First Eval Re-Evaluation Time: 04:19 Change: Improved Comment: Patient states pain has completely resolved. She will be discharged to home and follow up with Dr. Warren. She is agreeable with this plan. GIGU Course/Dx - Course Course Of Treatment: Patient with extensive history for renal colic currently breast-feeding. She is found to have a 5 mm distal UVJ stone. She was treated here with full relief of discomfort. I discussed the case with her urologist who wishes for her to be discharged. They will follow-up with her as needed. She will use Zofran, NSAID given that she is continuing to breast-feed. 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 Warren called, as patient's pain has completely resolved, he will see patient in his office as opposed to patient admission. Discharge - Sign-Out/Discharge Documenting (check all that apply): Patient Departure - discharge - Discharge Plan Condition: Improved Disposition: HOME Prescriptions: Naproxen [Naproxen 500 mg tab] 500 mg PO BID PRN #10 tablet PRN Reason: Pain Ondansetron [Zofran Odt] 4 mg PO TID PRN #10 tab.rapdis PRN Reason: Nausea Patient Education Materials: Kidney Stones (ED), Low Oxalate Diet (ED) Referrals: Janes Marie DO [Primary Care Provider] - Federico Locke MD [Medical Doctor] - Additional Instructions: Drink plenty of fluids. Tylenol and prescribed medication as needed for discomfort. Return with fever, vomiting, uncontrolled pain, worse or other concerns. Call today to follow-up with the urologist as needed. Follow up with your primary care physician. Try a calcium oxalate diet as this may cut down on stone formation. - Billing Disposition and Condition Condition: IMPROVED Disposition: Home - Attestation Statements Document Initiated by Scribe: Yes Documenting Scribe: Orion Galindo Provider For Whom Scribe is Documenting (Include Credential): Damien Zelaya MD Scribe Attestation: I, Orion Galindo, scribed for Damien Zelaya MD on 12/11/17 at 0717. Scribe Documentation Reviewed: Yes Provider Attestation: The documentation as recorded by the Orion lacey accurately reflects the service I personally performed and the decisions made by me, Damien Zelaya MD
== END 2017-12-11 04:42 | disposition home or self-care (01) ==
LOC: ED 01:02
DX: O90.89 Other complications of the puerperium, not elsewhere classified (principal); N20.1 Calculus of ureter; Z87.442 Personal history of urinary calculi
CPT/HCPCS: 36415; 74176; 80053; 81003; 81015; 83605; 83690; 84702; 85025; 86140; 96361; 96374; 96375; 99283; J1885

== ENCOUNTER 2019-12-08 11:00 | Inpatient (IN) ==
[2019-12-27] MEDS ORDERED: ceFOXitin 2 GM IVPREMIX 2 GM/50 ML BAG IVPB ONE (21:28)
[2019-12-28] MEDS ORDERED: Sodium Citrate/Citric Acid LIQ 15 ML UDC PO ONE (06:00)
[2019-12-28] MEDS ORDERED: Lactated Ringers 1000 ml BAG 1,000 ML IV SCH ×2 (06:00→14:00)
[2019-12-28] MEDS ORDERED: Buffered Lidocaine 1% SYRIN 1 ml INTRADERM ONE (06:00)
[2019-12-28] MEDS ORDERED: Morphine PF AMP (0.5MG/ML) 5 MG/10 ML AMP ONE (11:21)
[2019-12-28] MEDS ORDERED: Dexamethasone IV 4 MG/ML VIAL 1 ml VIAL ONE (11:22)
[2019-12-28] MEDS ORDERED: Ondansetron 4 mg VIAL 2 MG/ML 2 ml VIAL ONE (11:22)
[2019-12-28] MEDS ORDERED: Oxytocin 10 UNITS/ML 1 ML VIAL ONE ×2 (11:22→12:35)
[2019-12-28 12:00] LABS: Urine Benzodiazepine Screen None Detected (None Detect); Urine Cannabinoids Screen None Detected (None Detect); Urine Opiates Screen None Detected (None Detect)
[2019-12-28] MEDS ORDERED: Phenylephrine 40 mcg/mL 10mL (400mcg) SYRINGE ONE (12:07)
[2019-12-28] MEDS ORDERED: DiMENhydriNATE IV 50 mg/ml 1 ml VIAL IV PUSH PRN (12:31)
[2019-12-28] MEDS ORDERED: Naloxone 0.4 mg VIAL 0.4 mg/ml 1 ml VIAL IV PRN (12:31)
[2019-12-28] MEDS ORDERED: DiMENhydriNATE IV 50 mg/ml 1 ml VIAL ONE (12:58)
[2019-12-28] MEDS ORDERED: Dibucaine 1% OINT 28.35 GM TUBE PR PRN (13:06)
[2019-12-28] MEDS ORDERED: Glycerin ADULT 2.4 gm SUPP PR PRN (13:06)
[2019-12-28] MEDS ORDERED: Witch Hazel PAD JAR TOPICAL PRN (13:06)
[2019-12-28] MEDS ORDERED: Ondansetron 4 mg VIAL 2 MG/ML 2 ml VIAL IV ONE (17:19)
[2019-12-29 08:11] LABS: ABS Eosinophils 0.1 10^3/ul (0-0.6); ABS Lymphocytes 2.2 10^3/ul (1.0-4.8); ABS Monocytes 1.2 10^3/ul (0-0.8); ABS Neutrophils 7.4 10^3/ul (1.5-7.7); Eosinophil % 0.7 %; Hematocrit 27 % (35-47); Hemoglobin 9.4 g/dL (12.0-16.0); Mean Corpuscular HGB Conc 34 g/dL (31-36); Mean Corpuscular Hemoglobin 27 pg (27-31); Mean Corpuscular Volume 79 fL (80-97); Mean Platelet Volume 9.6 fL (7.4-10.4); Platelet Count 142 10^3/uL (150-450); Red Blood Count 3.44 10^6 /uL (3.70-4.87); Red Cell Distribution Width 14 % (10-15); White Blood Count 10.8 10^3/uL (3.5-10.8)
[2019-12-30 08:23] VITALS: BP 99/65
== END 2019-12-30 10:31 | disposition home or self-care (01) | DRG 540 ==
LOC: MCHOB 12-28 10:11
PROVIDERS: ADMIT Obstetrics & Gynecology; ATTEND Obstetrics & Gynecology